=== PATIENT | female | born 1955 | race African-American/Black ===

== ENCOUNTER 2024-08-15 10:23 | Emergency (ER) | payer MEDICARE, OTHER ==
[~2024-08-15] VITALS: Ht 170.2 cm; Wt 77.1 kg
[2024-08-15 10:34] VITALS: O2SAT 98
[2024-08-15 12:52] VITALS: BP 122/68; PULSE 74; RESP 19; TEMP 36.83628; O2SAT 98
== END 2024-08-15 13:09 | disposition home or self-care (01) ==
LOC: ER 10:33
DX: B34.9 Viral infection, unspecified (principal); E78.00 Pure hypercholesterolemia, unspecified; I10 Essential (primary) hypertension; Z88.8 Allergy status to other drugs, medicaments and biological substances; Z20.822 Contact with and (suspected) exposure to COVID-19
CPT/HCPCS: 71045; 87426; 87804; 93005; 99284